=== PATIENT | female | born 1980 | race African-American/Black ===

== ENCOUNTER 2020-06-06 17:11 | Inpatient (IN) | payer MEDICAID ==
[~2020-06-06] VITALS: Ht 165.1 cm; Wt 99.8 kg
[2020-06-06] MEDS ORDERED: VANCOMYCIN 1 G PREMIX 200 ML IV ONE (21:45)
[2020-06-06] MEDS ORDERED: PIPERACILLIN/TAZ 3.375G PREMIX 50 ML IV ONE (21:45)
[2020-06-06] MEDS ORDERED: MORPHINE SULFATE 4 MG/ML CPJ (NOT FOR IM USE) IV STA (22:13)
[2020-06-06] MEDS ORDERED: ONDANSETRON HCL 4MG/2ML INJ IV STA (22:13)
[2020-06-06 23:15] LABS: BASOPHILS % 0.7 % (0.0-2.0); HEMATOCRIT. 37.7 % (36.0-48.0); HEMOGLOBIN. 12.1 g/dL (12.0-16.0); LYMPHOCYTES % 26.9 % (20.0-50.0); MEAN CORPUSCULAR HEMOGLOBIN 27.2 pg (28.0-32.0); MEAN CORPUSCULAR VOLUME 84.9 fL (81.0-99.0); MEAN PLATELET VOLUME 8.3 fl (7.4-10.4); NEUTROPHILS % 64.4 % (40.0-76.0); PLATELET 265 x1000/uL (130-400); RED BLOOD CELL COUNT 4.44 mill/uL (4.2-5.4); RED CELL DISTRIBUTION WIDTH 18.5 % (11.6-14.6)
[2020-06-06 23:23] LABS: CHLORIDE 105 mEq/L (98-107)
[2020-06-06 23:25] LABS: CLARITY URINE CLOUDY (CLEAR); COLOR URINE YELLOW (YELLOW); KETONES URINE 2+ (NEGATIVE); LEUKOCYTE ESTERASE URINE 2+ (NEGATIVE); NITRITE URINE NEGATIVE (NEGATIVE); OCCULT BLOOD URINE NEGATIVE (NEGATIVE); PROTEIN URINE NEGATIVE (NEGATIVE); SPECIFIC GRAVITY URINE 1.022 (1.005-1.030)
[2020-06-06 23:26] LABS: INR 1.1; PROTHROMBIN TIME 11.6 sec (9.6-11.0)
[2020-06-07] VITALS (8 sets, daily range): BP systolic 98–117; BP diastolic 47–67
[2020-06-07] MEDS ORDERED: FUROSEMIDE 40MG/4ML VIAL IV ONE (00:45)
[2020-06-07 02:43] LABS: HCG SCREEN NEGATIVE
[2020-06-07] MEDS ORDERED: BUPR100T13 PO (10:48)
[2020-06-07] MEDS ORDERED: QUET50TA PO (10:48)
[2020-06-07] MEDS ORDERED: ONDANSETRON HCL 4MG/2ML INJ IV PRN (11:30)
[2020-06-07] MEDS ORDERED: ACETAMINOPHEN 325MG TABLET PO PRN (11:30)
[2020-06-07] MEDS ORDERED: KETOROLAC 30MG/ML VIAL IV PRN (11:45)
[2020-06-07] MEDS: VANCOMYCIN 1 G PREMIX 200 ML IV SCH ×2 (13:04→21:49)
[2020-06-07] MEDS: CEFTRIAXONE 1,000 MG in DEXTROSE 5% WATER 50 ML IV SCH (13:04)
[2020-06-07] MEDS: NICOTINE 14MG PATCH TD SCH (14:15)
[2020-06-07] MEDS ORDERED: BUPROPION HCL 100MG TABLET PO SCH (16:00)
[2020-06-07] MEDS: BUPROPION HCL 100MG SR TABLET PO SCH (16:49)
[2020-06-07] MEDS: QUETIAPINE FUMARATE 50MG TABLET PO SCH (16:49)
[2020-06-07 18:37] LABS: *AMPHETAMINES SCREEN URINE NEGATIVE (NEGATIVE); *BARBITURATES SCREEN URINE NEGATIVE (NEGATIVE); *BENZODIAZEPINES SCREEN URINE NEGATIVE (NEGATIVE)
[2020-06-07 18:39] LABS: METHADONE URINE SCREEN NEGATIVE (NEGATIVE); PHENCYCLIDINE URINE SCREEN NEGATIVE (NEGATIVE)
[2020-06-07 18:44] LABS: *COCAINE SCREEN URINE PRESUMTIVE POSITIVE (NEGATIVE); OPIATES URINE SCREEN PRESUMTIVE POSITIVE (NEGATIVE)
[2020-06-07 18:45] LABS: CANNABINOID URINE SCREEN PRESUMTIVE POSITIVE (NEGATIVE)
[2020-06-07] MEDS: ENOXAPARIN 30MG/0.3ML SYR SUBCUT SCH (21:49)
[2020-06-08] VITALS (12 sets, daily range): BP systolic 100–117; BP diastolic 51–71
[2020-06-08 05:09] LABS: CHLORIDE 107 mEq/L (98-107)
[2020-06-08 05:16] LABS: VANCOMYCIN TROUGH 13.1 ug/mL (5.0-10.0)
[2020-06-08] MEDS: VANCOMYCIN 1 G PREMIX 200 ML IV SCH ×2 (06:20→14:41)
[2020-06-08] MEDS: QUETIAPINE FUMARATE 50MG TABLET PO SCH ×2 (09:31→17:22)
[2020-06-08] MEDS: BUPROPION HCL 100MG SR TABLET PO SCH (09:31)
[2020-06-08] MEDS: ENOXAPARIN 30MG/0.3ML SYR SUBCUT SCH ×2 (09:32→20:12)
[2020-06-08] MEDS: NICOTINE 14MG PATCH TD SCH (09:32)
[2020-06-08] MEDS ORDERED: AMOX-424 MT (13:28)
[2020-06-08] MEDS ORDERED: SULF1TAB48 MT (13:28)
[2020-06-08] MEDS: CEFTRIAXONE 1,000 MG in DEXTROSE 5% WATER 50 ML IV SCH (14:40)
[2020-06-08] MEDS: SULFAMETHOXAZOLE/TRIMETHOPRIM 400/80MG TAB PO SCH (20:11)
[2020-06-08] MEDS: AMOXICILLIN/POTASSIUM CLAVULANATE 875/125MG TAB PO SCH (20:11)
[2020-06-09] VITALS (14 sets, daily range): BP systolic 100–137; BP diastolic 54–74
[2020-06-09] MEDS: QUETIAPINE FUMARATE 50MG TABLET PO SCH ×2 (09:01→17:46)
[2020-06-09] MEDS: SULFAMETHOXAZOLE/TRIMETHOPRIM 400/80MG TAB PO SCH ×2 (09:01→20:36)
[2020-06-09] MEDS: NICOTINE 14MG PATCH TD SCH (09:01)
[2020-06-09] MEDS: AMOXICILLIN/POTASSIUM CLAVULANATE 875/125MG TAB PO SCH ×2 (09:01→20:36)
[2020-06-09] MEDS: BUPROPION HCL 100MG SR TABLET PO SCH (09:01)
[2020-06-09] MEDS: ENOXAPARIN 30MG/0.3ML SYR SUBCUT SCH ×2 (09:02→20:37)
[2020-06-09] MEDS ORDERED: TOPUD PO (11:37)
[2020-06-10 00:01] VITALS: BP 101/55
[2020-06-10 02:06] VITALS: BP 93/57
[2020-06-10 03:59] VITALS: BP 95/64
[2020-06-10 06:00] VITALS: BP 112/58
== END 2020-06-10 07:09 | disposition home or self-care (01) | DRG 383 ==
LOC: ER 17:38 → 3WST 06-07 08:15 → ENRESERV 06-07 08:16
PROVIDERS: ADMIT Internal Medicine; ATTEND Internal Medicine
DX: L03.115 Cellulitis of right lower limb (principal); F31.9 Bipolar disorder, unspecified; F20.9 Schizophrenia, unspecified; F17.210 Nicotine dependence, cigarettes, uncomplicated; E66.9 Obesity, unspecified; F12.90 Cannabis use, unspecified, uncomplicated; L03.116 Cellulitis of left lower limb; F15.90 Other stimulant use, unspecified, uncomplicated; F14.90 Cocaine use, unspecified, uncomplicated; Z68.36 Body mass index [BMI] 36.0-36.9, adult; Z88.6 Allergy status to analgesic agent; Z79.899 Other long term (current) drug therapy
CPT/HCPCS: 36415; 71045; 80048; 80053; 80202; 80305; 81003; 83605; 83880; 84145; 84484; 84703; 85025; 93005; 93970; 99285; J0696; J1650; J1940; J2270; J2405; J2543; J3370; J7060

== ENCOUNTER 2025-04-11 14:19 | Emergency (ER) | payer MEDICAID, OTHER ==
[~2025-04-11] VITALS: Ht 167.6 cm; Wt 91.0 kg
[~2025-04-11 14:19] MED LIST: AMOX-424 MT; BUPR100T13 PO; QUET50TA PO; SULF1TAB48 MT; TOPUD PO
[2025-04-11 14:21] VITALS: O2SAT 98
[2025-04-11 15:37] LABS: BASOPHILS % 0.5 % (0.0-2.0); EOSINOPHILS % 0.5 % (0.0-5.0); HEMATOCRIT. 36.1 % (36.0-48.0); HEMOGLOBIN. 11.5 g/dL (12.0-16.0); LYMPHOCYTES % 14.5 % (20.0-50.0); MEAN CORPUSCULAR HEMOGLOBIN 25.9 pg (28.0-32.0); MEAN CORPUSCULAR HGB CONC 31.8 g/dL (31.0-37.0); MEAN CORPUSCULAR VOLUME 81.4 fL (81.0-99.0); MEAN PLATELET VOLUME 8.6 fl (7.4-10.4); MONOCYTES % 7.7 % (2.0-8.0); NEUTROPHILS % 76.8 % (40.0-76.0); PLATELET 273 x1000/uL (130-400); RED BLOOD CELL COUNT 4.43 mill/uL (4.2-5.4); RED CELL DISTRIBUTION WIDTH 17.9 % (11.6-14.6); WHITE BLOOD COUNT 14.6 x1000/uL (4.5-11.0)
[2025-04-11 15:42] LABS: CHLORIDE 104 mEq/L (98-107); SODIUM 144 mEq/L (136-145)
[2025-04-11 15:43] LABS: CALCIUM 9.6 mg/dL (8.7-10.4); CARBON DIOXIDE 31 mEq/L (21-32)
[2025-04-11 15:48] LABS: CREATININE 0.9 mg/dL (0.6-1.0); GLUCOSE 116 mg/dL (70-105); UREA NITROGEN BLOOD 8 mg/dL (9-23)
[2025-04-11 15:49] LABS: ETHANOL BLOOD < 10 mg/dL (<10); HCG SCREEN NEGATIVE
[2025-04-11 15:50] LABS: ACETAMINOPHEN < 2 ug/mL (10-30)
[2025-04-11 15:53] LABS: CLARITY URINE TURBID (CLEAR); GLUCOSE URINE NEGATIVE (NEGATIVE); KETONES URINE 1+ (NEGATIVE); LEUKOCYTE ESTERASE URINE TRACE (NEGATIVE); NITRITE URINE NEGATIVE (NEGATIVE); OCCULT BLOOD URINE 2+ (NEGATIVE); PH URINE 5.5 (4.5-8.0); PROTEIN URINE 3+ (NEGATIVE)
[2025-04-11 15:54] LABS: POTASSIUM 2.7 mEq/L (3.5-5.1)
[2025-04-11 16:17] LABS: *AMPHETAMINES SCREEN URINE PRESUMPTIVE POSITIVE (NEGATIVE); *BARBITURATES SCREEN URINE NEGATIVE (NEGATIVE); *BENZODIAZEPINES SCREEN URINE NEGATIVE (NEGATIVE); *COCAINE SCREEN URINE NEGATIVE (NEGATIVE); METHADONE URINE SCREEN NEGATIVE (NEGATIVE)
[2025-04-11 16:18] LABS: CANNABINOID URINE SCREEN PRESUMPTIVE POSITIVE (NEGATIVE); COLOR URINE YELLOW (YELLOW); ECSTASY MDMA SCREEN URINE CONF.TEST INDICATED (NEGATIVE); OPIATES URINE SCREEN NEGATIVE (NEGATIVE); PHENCYCLIDINE URINE SCREEN NEGATIVE (NEGATIVE)
[2025-04-11 16:21] LABS: AMORPHOUS SEDIMENT URINE 4+ /lpf; BACTERIA URINE NONE SEEN; RBC URINE 0-2 /hpf (0-2); SQUAMOUS EPITHELIAL CELL URINE 2+ /lpf (RARE/1+); WBC URINE 0-2 /hpf (0-2)
[2025-04-11 16:22] LABS: MUCUS URINE TRACE /lpf (< = 2+)
[2025-04-11] MEDS: OLANZAPINE 10 MG/VIAL IM ONE (16:36)
[2025-04-11] MEDS: OLANZAPINE 10MG TABLET PO SCH (16:49)
[2025-04-11] MEDS: POTASSIUM CHLORIDE 20MEQ/PACKET PO ONE (16:49)
[2025-04-11 19:35] LABS: CHLORIDE 106 mEq/L (98-107); POTASSIUM 2.9 mEq/L (3.5-5.1); SODIUM 144 mEq/L (136-145)
[2025-04-11 19:36] LABS: CARBON DIOXIDE 27 mEq/L (21-32)
[2025-04-11 19:37] LABS: CALCIUM 9.6 mg/dL (8.7-10.4)
[2025-04-11 19:42] LABS: CREATININE 0.9 mg/dL (0.6-1.0); GLUCOSE 110 mg/dL (70-105); UREA NITROGEN BLOOD 8 mg/dL (9-23)
[2025-04-12] MEDS ORDERED: LORAZEPAM 2MG/ML INJ IM ONE (02:15)
[2025-04-12] MEDS: LORAZEPAM 2MG/ML UD SYRINGE IM NR (02:30)
[2025-04-12] MEDS: DIPHENHYDRAMINE 50MG/ML VIAL IM ONE (03:17)
[2025-04-12] MEDS: HALOPERIDOL LACTATE 5MG/ML VIAL IM ONE (06:02)
[2025-04-12 18:05] VITALS: BP 124/68; PULSE 90; RESP 16; TEMP 36.9; O2SAT 100
[2025-04-12] MEDS ORDERED: QUETIAPINE FUMARATE 50MG TABLET PO SCH (21:00)
== END 2025-04-12 18:34 ==
LOC: ER 14:19
DX: F23 Brief psychotic disorder (principal); E87.6 Hypokalemia; F31.9 Bipolar disorder, unspecified; Z20.822 Contact with and (suspected) exposure to COVID-19; Z88.6 Allergy status to analgesic agent; Z79.899 Other long term (current) drug therapy; Z98.890 Other specified postprocedural states
CPT/HCPCS: 80305; 80048; 81003; 80307; 80329; 80320; 84703; 85025; 36415; 99285; 87426; 96372; J1200; J1630; J2060; G0480